=== PATIENT | male | born 1965 | race African-American/Black ===

== ENCOUNTER → 2016-08-21 | Outpatient (CLI) | payer BC ==
[~2016-08-21] MED LIST: ADULT LOW DOSE81 MG PO; BENICAR40 MG PO; CALCIUM 600 +1 EAC1 OR; CARTIA OR; FISHOIL PO; GARLIC OIL1 EAC1 PO; LISINOPRIL20 MG PO; SIMVASTATIN40 MG OR
--- NOTE | ~2016-08-21 | SLE ---
[facility] [address] [place] [address] POLYSOMNOGRAPHY STUDY Name: RAYLORENA L Room #: REG [facility]#: [id number] Admission: 08/21/16 Attend Phys: Jordi Smith MD Discharge: Date of : 63 Report #: [id number] THIS REPORT FOR: //name// CC: Ron Nogueira MD HISTORY: Prior study September 2008 showed an apnea-hypopnea index of 40 events per sleep hour with low sat of 76%. Snore with arousal of 30 events per sleep hour. CPAP of 12 cm water pressure was considered. The patient did not feel his CPAP was working. At time of 2008 study, the patient's weight was 300 pounds, currently 347. COMMENTS: CPAP TITRATION: Titrated at 5, 6, 8, 9, 11, 13 and 15 cm water pressure. At 15 cm water pressure, the patient was seen for 75 minutes of which 18.5 minutes was in REM sleep. Central apnea 2, hypopnea 18, apnea-hypopnea index of 16 events per sleep hour, low sat of 90%. The patient was seen in supine and REM sleep. At 8 cm water pressure, the patient was seen for 117 minutes of which 25 minutes was in REM sleep. There was 1 hypopnea, apnea-hypopnea index 0.5 events per sleep hour, low sat is 75%. The patient was seen in supine REM sleep at that setting also. IMPRESSION: 1. History of obstructive sleep apnea/hypopnea, G47.33. 2. A definite CPAP setting was not established. 3. Premature ventricular contraction noted. SUGGESTIONS: 1. In addition to specific therapy, the patient should be cautioned regarding driving or operating dangerous machinery unless fully alert. The patient should be cautioned regarding the use of respiratory depressants. 2. Usual sleep apnea suggestions are recommended. 3. An auto titrating CPAP machine between 8 and 17 cm water pressure is initially recommended. During our study, a ResMed AirFit N20 large mask was used with heated humidity. May consider alternative full facemask. In morning questionnaire, patient related he felt active and vital, alert and wide awake. 4. If signs and symptoms not improved with therapy, further evaluation recommended. Please do not hesitate to contact me if I may be of further assistance. <ELECTRONICALLY SIGNED> By: Jordi Smith MD 09/10/16 [phone] Jordi Smith MD /nt
== END ==
LOC: SLEEPLAB 13:18
DX: G47.33 Obstructive sleep apnea (adult) (pediatric) (principal)

== ENCOUNTER → 2020-12-01 | Outpatient (CLI) | payer OTHER | LOC: LABMALL 07:08 → PAC 07:25 | PROVIDERS: Specialist; ATTEND Student in an Organized Health Care Education/Training Program | DX: Z01.818 Encounter for other preprocedural examination (principal); Z20.822 Contact with and (suspected) exposure to COVID-19 ==

== ENCOUNTER → 2020-12-03 | Outpatient (CLI) | payer OTHER ==
--- NOTE | 2020-12-04 09:46 | P ---
[facility] [place] [address] PROCEDURE REPORT Name: LORENA BELL Room #: REG [facility]#: [id number] Admission: 12/03/20 Attend Phys: Aroldo Alvarado Discharge: Date of : 63 Report #: [id number] THIS REPORT FOR: cc: Ron Perla,Aroldo Jaramillo MD ~ DOC #: [id number] cc: MD Aroldo Prajapati MD DATE OF SERVICE: 12/03/2020 PROCEDURE PERFORMED: Colonoscopy with biopsies. HISTORY OF PRESENT ILLNESS: The patient is a 55-year-old male with a history of colon polyps, last colonoscopy in 2012. He denies any symptoms, no family history of colon cancer. DESCRIPTION OF PROCEDURE: The risks and benefits of the procedure were explained to the patient, those risks including but not limited to bleeding, perforation and the risk of sedation. He understood these risks and gave informed consent. Sedation was given using propofol per anesthesia. Next, a digital rectal exam was initially performed, which was normal. Next, using a standard Olympus colonoscope, the scope was placed in the patient's anus and advanced under direct vision to the cecum. The overall prep was good. The cecum and ileocecal valve were normal in normal in appearance. In the proximal ascending colon, opposite of the ileocecal valve, a single clean white based ulcer was noted, 5 mm in size. Biopsies were obtained. The terminal ileum was intubated and normal in appearance. The remaining ascending colon was normal. The transverse, descending and sigmoid colon were all normal. In the rectum, there was a 3 mm sessile polyp. This was removed with cold forceps, otherwise normal. On retroflexion, no abnormalities were noted. The scope was then withdrawn and the procedure terminated. The patient tolerated the procedure well. IMPRESSION: 1. Small proximal ascending colon ulcer, may be secondary to NSAIDs as the patient takes aspirin on a daily basis. 2. Small rectal polyp. 3. Otherwise, normal colonoscopy. RECOMMENDATIONS: 1. Await biopsy results. 2. If polyp is hyperplastic, repeat in 10 years; if adenomatous polyp, repeat in [address] [address] PROCEDURE REPORT Name: LORENA BELL Rory Room #: REG [facility] [place]#: [id number] Admission: 12/03/20 Attend Phys: Aroldo Alvarado Discharge: Date of : 63 Report #: [id number] Thank you for allowing me to participate in his care. Aroldo Wheat MD CCM/RALPH <ELECTRONICALLY SIGNED> By: Aroldo Wheat MD 12/04/20 0946 [id number] [id number] Aroldo Wheat MD /irma
--- NOTE | 2020-12-07 11:07 | PATH ---
[facility] [place] [place] [address] PATHOLOGY RPT PROCEDURE Name: LORENA BELL Rory Room #: REG [facility] Bahman.#: [id number] Admission: 12/03/20 Date of : 63 Discharge: Report #: [id number] Path Case #: [id number] [facility] Accession Number: [id number] . 01 Material submitted: . PART A: colon - BIOPSY OF ULCER ASCENDING COLON. Modifiers: ascending PART B: rectum - RECTAL POLYP . 01 Clinical history: . DTS/COLONOSCOPY/HX OF POLYPS ULCERS,RECTAL POLYO . 02 Diagnosis: A. Large intestine, ascending colon ulcer, endoscopic biopsy: - Focal acute surface epithelial ulceration present. - Few fragments of tubular adenoma; no definite high grade dysplasia identified. - Mild focal acute colitis, see comment. - Negative for malignancy. . B. Polyp, rectal polyp, endoscopic biopsy: - Superficial fragment of large intestinal mucosa with hyperplastic changes. - Negative for dysplasia. . (IUV:mml; 12/06/2020) QLM 12/06/2020 1644 Local . 02 Comment: Examination of the "ascending colon ulcer" shows focal surface epithelial acute inflammation, crypt abscess, as well as mild fibrotic lamina propria. Other areas show a mild increase in the cellularity of the lamina propria with lymphocytes, plasma cells as well as numerous eosinophils. Rare foci of cryptitis are identified as well. In addition, few fragments are consistent with a partially-sampled tubular adenoma without any high grade dysplasia. The adenomatous changes may also be likely due to the background of inflammation. The differential diagnosis includes active colitis due to various etiologies including inflammatory bowel disease. Please correlate clinically. . (IUV:mml; 12/06/2020) . 02 Electronically signed: . Chhaya Beckman MD, Pathologist NPI- [id number] . 01 Gross description: [place] [address] PATHOLOGY RPT PROCEDURE Name: [facility] BELL [id number] Admission: 12/03/20 Date of : 63 Discharge: Report #: [id number] Path Case #: [id number] A. Received in formalin labeled "Lorena Bell Sr. and biopsy of ulcer, ascending colon". Received are multiple swan-brown soft tissue fragments ranging from 0.2-0.4 cm. Specimen is entirely submitted in cassette A1. . B. Received in formalin labeled "Belkys Sr., Lorena and rectal polyp". Received are minute monaco soft tissue fragments range from 0.1-0.2 cm. Specimen is entirely submitted in cassette B1.([facility]; 12/03/2020) J/J 12/03/2020 2103 Local . 02 Pathologist provided ICD-10: D12.2, K63.3, K52.9 . 02 CPT . 610488, 732901 Specimen Comment: A courtesy copy of this report has been sent to [phone], [phone] Specimen Comment: [id number] Specimen Comment: Report sent to / DR SAPP Performed at: [address], [place], [place] [id number] MD Tu Yoder MD Phone: [phone] Performed at: [address] [id number] MD Chhaya Beckman MD Phone: [phone]
== END | disposition home or self-care (01) ==
LOC: GI 11-03 13:27
PROVIDERS: ATTEND Specialist
DX: Z12.11 Encounter for screening for malignant neoplasm of colon (principal); Z86.010 Personal history of colon polyps; D12.2 Benign neoplasm of ascending colon; K63.3 Ulcer of intestine; K52.9 Noninfective gastroenteritis and colitis, unspecified; Z98.890 Other specified postprocedural states; Z79.899 Other long term (current) drug therapy; Z88.0 Allergy status to penicillin; Z88.8 Allergy status to other drugs, medicaments and biological substances
CPT/HCPCS: 62110; 62900